=== PATIENT | male | born 1970 | race Caucasian/White ===

== ENCOUNTER 2021-12-29 10:12 | Emergency (ER) | payer OTHER ==
[2021-12-29 10:51] VITALS: BP 110/71; PULSE 99; TEMP 98.1; BMI 20.9
== END 2021-12-29 13:51 | disposition home or self-care (01) ==
LOC: JER 10:12
DX: R05.1 Acute cough (principal)
CPT/HCPCS: 0241U-QW; 71046-TC-FY; 93005; 93010; 99284-25

== ENCOUNTER → 2023-03-21 | Day surgery (SDC) | payer OTHER | END | disposition home or self-care (01) | LOC: JRADIR 11:48 | PROVIDERS: ATTEND Internal Medicine Endocrinology, Diabetes & Metabolism | PROC: 0G9H3ZX Drainage of Right Thyroid Gland Lobe, Percutaneous Approach, Diagnostic (ICD-10-PCS; principal; 2023-03-21) | DX: E04.1 Nontoxic single thyroid nodule (principal) | CPT/HCPCS: 10005; 76942; 88173; 88305-TC ==